=== PATIENT | female | born 1995 | race Two or more races ===

== ENCOUNTER → 2022-01-15 | Outpatient (CLI) | payer MEDICAID, SELFPAY ==
[2022-01-15 15:37] LABS: HEMATOCRIT 36.8 % (36.0-47.0); HEMOGLOBIN 12.2 g/dl (12.0-15.5); MEAN CORPUSCULAR HEMOGLOBIN 30.5 pg (27.0-33.0); MEAN CORPUSCULAR HGB CONC 33.2 g/dl (32.0-36.5); PLATELET COUNT, AUTOMATED 193 10^3/uL (150-450); WHITE BLOOD COUNT 11.5 10^3/uL (4.0-10.0)
[2022-01-15 17:21] LABS: GC DNA AMPLIFICATION NEGATIVE (NEGATIVE)
[2022-01-15 19:23] LABS: GLUCOSE CHALLENGE TEST 1 HOUR 100 MG/DL (LESS THAN 140); HEPATITIS C VIRUS ABY INDEX < 0.0 INDEX (<0.8); HIV 1&2 SCREEN CENTAUR NEGATIVE (NEGATIVE)
== END ==
LOC: M PLALAB 12:06
PROVIDERS: ATTEND Advanced Practice Midwife
DX: O09.30 Supervision of pregnancy with insufficient antenatal care, unspecified trimester (principal)

== ENCOUNTER → 2022-01-15 | Outpatient (CLI) | payer SELFPAY | LOC: M WHC 13:40 | PROVIDERS: ATTEND Advanced Practice Midwife | DX: O09.30 Supervision of pregnancy with insufficient antenatal care, unspecified trimester (principal); Z3A.26 26 weeks gestation of pregnancy ==

== ENCOUNTER → 2022-03-19 | Outpatient (CLI) | payer SELFPAY | LOC: M WHC 09:16 | PROVIDERS: ATTEND Advanced Practice Midwife | DX: O09.32 Supervision of pregnancy with insufficient antenatal care, second trimester (principal); Z3A.32 32 weeks gestation of pregnancy ==

== ENCOUNTER → 2022-04-30 | Outpatient (REF) | payer MEDICAID | LOC: M SFHCWAGY 16:39 | PROVIDERS: ATTEND Advanced Practice Midwife | DX: O09.33 Supervision of pregnancy with insufficient antenatal care, third trimester (principal); Z3A.00 Weeks of gestation of pregnancy not specified ==

== ENCOUNTER 2022-05-18 22:48 | Inpatient (IN) | payer OTHER, MEDICAID ==
[~2022-05-18] VITALS: Ht 167.6 cm; Wt 105.5 kg
[2022-05-18] MEDS ORDERED: ACET325C5 PO (23:03)
[2022-05-18] MEDS ORDERED: PRENTAB9 PO (23:03)
[2022-05-18] MEDS ORDERED: HOME MED LIST COMPLETE! XX SCH (23:05)
[2022-05-18 23:12] VITALS: BP 134/81
[2022-05-18 23:46] LABS: HEMATOCRIT 32.6 % (36.0-47.0); HEMOGLOBIN 10.8 g/dl (12.0-15.5); MEAN CORPUSCULAR HEMOGLOBIN 27.5 pg (27.0-33.0); MEAN CORPUSCULAR HGB CONC 33.1 g/dl (32.0-36.5); PLATELET COUNT, AUTOMATED 177 10^3/uL (150-450); RED BLOOD COUNT 3.93 10^6/uL (4.00-5.40); WHITE BLOOD COUNT 7.2 10^3/uL (4.0-10.0)
[2022-05-18] MEDS ORDERED: METHYLERGONOVINE MALEATE 0.2 MG/ML VIAL (J2210) IM PRN (23:50)
[2022-05-18] MEDS ORDERED: TRANEXAMIC ACID INJection 1,000 MG in NS 100 ML IV PRN (23:50)
[2022-05-18] MEDS ORDERED: LIDOCAINE 1% MDV 20ML VIAL INFIL PRN (23:50)
[2022-05-18] MEDS ORDERED: miSOPROStol 50MCG 1/2 TABLET PO SCH (23:50)
[2022-05-19] VITALS (16 sets, daily range): BP systolic 123–164; BP diastolic 60–102
[2022-05-19] MEDS ORDERED: guaiFENesin DM LIQ 10ML UD PO PRN (03:20)
[2022-05-19] MEDS ORDERED: LR 1,000 ML IV SCH (05:10)
[2022-05-19] MEDS ORDERED: LR 1,000 ML IV ONE (05:10)
[2022-05-19] MEDS ORDERED: OXYTOCIN DRIP 30 UNITS in IV 1 EA IV SCH ×2 (05:10→07:40)
[2022-05-19 05:32] LABS: URIC ACID 5.8 MG/DL (3.1-7.8)
[2022-05-19 05:34] LABS: LDH LACTATE DEHYDROGENASE 173 U/L (120-246)
[2022-05-19 05:35] LABS: ALT/SGPT 41 U/L (7.0-40); AST/SGOT 29 U/L (<34); BILIRUBIN,TOTAL 0.3 MG/DL (0.3-1.2); CREATININE FOR GFR 0.52 MG/DL (0.55-1.30); GLOMERULAR FILTRATION RATE > 60.0 (>60)
[2022-05-19] MEDS ORDERED: ONDANSETRON 4MG 2ML VIAL IV ONE (06:30)
[2022-05-19 06:33] LABS: TOTAL PROTEIN,RANDOM URINE 14.8 MG/DL (0.0-14.0)
[2022-05-19 06:38] LABS: CREATININE,RANDOM URINE 75.8 MG/DL
[2022-05-19] MEDS ORDERED: IBUPROFEN 600MG TAB PO PRN (07:40)
[2022-05-19] MEDS ORDERED: METHYLERGONOVINE MALEATE 0.2 MG TAB PO PRN (07:40)
[2022-05-19] MEDS ORDERED: DOCUSATE SODIUM 100MG CAPSULE PO PRN (07:40)
[2022-05-19] MEDS ORDERED: IBUPROFEN 800 MG TAB PO PRN (07:40)
[2022-05-19] MEDS ORDERED: DIBUCAINE 1% OINTMENT 30GM TOP PRN (07:40)
[2022-05-19] MEDS ORDERED: ACETAMINOPHEN 500 MG TAB PO PRN (07:40)
[2022-05-19] MEDS ORDERED: ACETAMINOPHEN TAB 650MG DOSE (2X325MG) PO PRN (07:40)
[2022-05-19] MEDS ORDERED: RHOGAM 300 MCG (1500 IU) INJ (J2790) IM SCH (07:40)
[2022-05-19] MEDS ORDERED: MOM 30ML SUSPENSION UDC PO PRN (07:40)
[2022-05-19 07:48] LABS: CORD GAS ABE V -0.7; CORD GAS HCO3 V 23.9 MEQ/L; CORD GAS O2 SAT V 73.6 %; CORD GAS PCO2 V 39.4 mmHg; CORD GAS PH V 7.401 UNITS; CORD GAS PO2 V 29.3 mmHg; CORD GAS SBC V 23.3 MEQ/L; CORD GAS TCO2 V 25.1 MEQ/L
[2022-05-19 07:51] LABS: CORD GAS ABE A -1.4; CORD GAS HCO3 A 25.5 MEQ/L; CORD GAS O2 SAT A 57.6 %; CORD GAS PCO2 A 50.6 mmHg; CORD GAS PH A 7.32 UNITS; CORD GAS PO2 A 24.6 mmHg; CORD GAS SBC A 22.2 MEQ/L
[2022-05-20 06:00] VITALS: BP 134/77
[2022-05-20 08:27] LABS: MEAN CORPUSCULAR HEMOGLOBIN 27.8 pg (27.0-33.0); MEAN CORPUSCULAR HGB CONC 32.6 g/dl (32.0-36.5); MEAN CORPUSCULAR VOLUME 85.4 fl (80.0-96.0); PLATELET COUNT, AUTOMATED 156 10^3/uL (150-450); RED BLOOD COUNT 3.16 10^6/uL (4.00-5.40); WHITE BLOOD COUNT 8.3 10^3/uL (4.0-10.0)
[2022-05-20 08:30] LABS: HEMOGLOBIN 8.8 g/dl (12.0-15.5)
[2022-05-20 08:41] LABS: ALBUMIN 2.1 G/DL (3.2-5.2); ALKALINE PHOSPHATASE 184 U/L (46-116); ALT/SGPT 46 U/L (7.0-40); AST/SGOT 37 U/L (<34); BILIRUBIN,TOTAL 0.3 MG/DL (0.3-1.2); BLOOD UREA NITROGEN < 5 MG/DL (9-23); CALCIUM LEVEL 7.7 MG/DL (8.5-10.1); CARBON DIOXIDE LEVEL 25 MMOL/L (20-31); CHLORIDE LEVEL 107 MMOL/L (98-107); CREATININE FOR GFR 0.57 MG/DL (0.55-1.30); GLOMERULAR FILTRATION RATE > 60.0 (>60); GLUCOSE, FASTING 79 MG/DL (60-100); POTASSIUM SERUM 3.7 MMOL/L (3.5-5.1); SODIUM LEVEL 139 MMOL/L (136-145); TOTAL PROTEIN 4.9 G/DL (5.7-8.2)
[2022-05-20] MEDS: PRENATAL VITAMINS CHEWABLE TABLET PO SCH ×2 (08:46→09:00)
[2022-05-20 15:30] VITALS: BP 172/82
[2022-05-20 16:30] VITALS: BP 168/80
[2022-05-20 17:00] VITALS: BP 146/88
[2022-05-20 18:26] VITALS: BP 161/92
[2022-05-20 21:30] VITALS: BP 134/67
[2022-05-21 01:30] VITALS: BP 129/69
[2022-05-21 06:00] VITALS: BP 139/89
[2022-05-21 07:00] LABS: HEMATOCRIT 28.2 % (36.0-47.0); MEAN CORPUSCULAR HEMOGLOBIN 27.7 pg (27.0-33.0); MEAN CORPUSCULAR HGB CONC 31.9 g/dl (32.0-36.5); MEAN CORPUSCULAR VOLUME 86.8 fl (80.0-96.0); PLATELET COUNT, AUTOMATED 155 10^3/uL (150-450); RED BLOOD COUNT 3.25 10^6/uL (4.00-5.40); WHITE BLOOD COUNT 7.9 10^3/uL (4.0-10.0)
[2022-05-21 07:38] LABS: ALBUMIN 2.2 G/DL (3.2-5.2); ALKALINE PHOSPHATASE 179 U/L (46-116); ALT/SGPT 86 U/L (7.0-40); AST/SGOT 63 U/L (<34); BILIRUBIN,TOTAL 0.3 MG/DL (0.3-1.2); BLOOD UREA NITROGEN < 5 MG/DL (9-23); CALCIUM LEVEL 8.1 MG/DL (8.5-10.1); CARBON DIOXIDE LEVEL 25 MMOL/L (20-31); CHLORIDE LEVEL 107 MMOL/L (98-107); CREATININE FOR GFR 0.57 MG/DL (0.55-1.30); GLOMERULAR FILTRATION RATE > 60.0 (>60); GLUCOSE, FASTING 77 MG/DL (60-100); POTASSIUM SERUM 3.8 MMOL/L (3.5-5.1); SODIUM LEVEL 140 MMOL/L (136-145); TOTAL PROTEIN 5.1 G/DL (5.7-8.2)
[2022-05-21] MEDS ORDERED: MEASLES,MUMPS,RUBELLA VACCINE INJ (MMR-II) (90707) SC.IMMUN ONE (09:00)
[2022-05-21] MEDS: PRENATAL VITAMINS CHEWABLE TABLET PO SCH (09:40)
== END 2022-05-21 11:48 | disposition home or self-care (01) | DRG 560 ==
LOC: M LDI 22:48 → M OBS 05-19 09:35
PROVIDERS: ADMIT Obstetrics & Gynecology; ATTEND Obstetrics & Gynecology
PROC: 3E0P7GC Introduction of Other Therapeutic Substance into Female Reproductive, Via Natural or Artificial Opening (ICD-10-PCS; 2022-05-18)
PROC: 10E0XZZ Delivery of Products of Conception, External Approach (ICD-10-PCS; principal; 2022-05-19)
PROC: 0HQ9XZZ Repair Perineum Skin, External Approach (ICD-10-PCS; 2022-05-19)
DX: O70.0 First degree perineal laceration during delivery (principal); Z3A.39 39 weeks gestation of pregnancy; Z37.0 Single live birth

== ENCOUNTER 2022-09-10 14:16 | Day surgery (SDC) | payer MEDICAID, OTHER ==
[~2022-09-10] VITALS: Ht 165.1 cm; Wt 87.5 kg
[~2022-09-10 14:16] MED LIST: ACET325C5 PO; PRENTAB9 PO
[2022-09-10] MEDS ORDERED: LR 1,000 ML IV SCH ×2 (14:25→19:05)
[2022-09-10 14:56] LABS: HEMATOCRIT 44.2 % (36.0-47.0); HEMOGLOBIN 14.6 g/dl (12.0-15.5); MEAN CORPUSCULAR HEMOGLOBIN 27.8 pg (27.0-33.0); MEAN CORPUSCULAR VOLUME 84.2 fl (80.0-96.0); PLATELET COUNT, AUTOMATED 212 10^3/uL (150-450); RED BLOOD COUNT 5.25 10^6/uL (4.00-5.40); WHITE BLOOD COUNT 7.5 10^3/uL (4.0-10.0)
[2022-09-10] MEDS ORDERED: fentaNYL 100 MCG/2 ML INJECTION As Ordered ONE ×2 (17:35→18:29)
[2022-09-10] MEDS ORDERED: MIDAZOLAM INJ 2MG/2ML VIAL As Ordered ONE (17:35)
[2022-09-10] MEDS ORDERED: propofoL 200 MG/20 ML VIAL As Ordered ONE (17:35)
[2022-09-10] MEDS ORDERED: LIDOCAINE 2% 100MG/5ML SDV (FOR ANES.) As Ordered ONE (17:35)
[2022-09-10] MEDS ORDERED: ROCURONIUM BROMIDE 50MG/5ML VIAL As Ordered ONE (17:35)
[2022-09-10] MEDS ORDERED: KETOROLAC 60MG 2ML VIAL As Ordered ONE (17:36)
[2022-09-10] MEDS ORDERED: ONDANSETRON 4MG 2ML VIAL As Ordered ONE (17:38)
[2022-09-10] MEDS ORDERED: BUPIVACAINE HCL 0.25% 30ML VIAL As Ordered ONE (18:08)
[2022-09-10] MEDS ORDERED: LABETALOL 100MG/20ML VIAL As Ordered ONE (18:11)
[2022-09-10] MEDS ORDERED: ACETAMINOPHEN 1000MG 100ML IV BAG As Ordered ONE (18:18)
[2022-09-10] MEDS ORDERED: SUGAMMADEX SODIUM 500 MG/5 ML VIAL (BRIDION) As Ordered ONE (18:38)
[2022-09-10] MEDS ORDERED: OXYC1TAB23 PO (18:51)
[2022-09-10] MEDS ORDERED: IBUP1TAB7 PO (18:53)
[2022-09-10] MEDS ORDERED: HYDROMORPHONE HCL 0.5 MG/ 0.5 ML SYRINGE IV PRN (19:05)
[2022-09-10] MEDS ORDERED: oxyCODONE 5MG TAB PO PRN (19:05)
[2022-09-10] MEDS ORDERED: fentaNYL 100 MCG/2 ML INJECTION IV PRN (19:05)
[2022-09-10] MEDS ORDERED: METOCLOPRAMIDE INJ 10MG/2ML VIAL IV PRN (19:05)
[2022-09-10] MEDS ORDERED: ONDANSETRON 4MG 2ML VIAL IV PRN (19:05)
[2022-09-10 19:53] VITALS: BP 156/89
== END 2022-09-10 20:03 | disposition home or self-care (01) ==
LOC: M SDC 14:16
PROVIDERS: ATTEND Obstetrics & Gynecology
DX: Z30.2 Encounter for sterilization (principal); F12.10 Cannabis abuse, uncomplicated
CPT/HCPCS: 36415; 58661; 81025; 85027; 86850; 86900; 86901; 88302; J0131; J1100; J1885; J2250; J2405; J3010

== ENCOUNTER → 2023-10-30 | Outpatient (REF) | payer OTHER ==
[~2023-10-30] MED LIST changes: +IBUP1TAB7 PO; +OXYC1TAB23 PO
== END ==
LOC: M LABCFH 14:15
PROVIDERS: ATTEND Registered Nurse
DX: Z12.4 Encounter for screening for malignant neoplasm of cervix (principal)